=== PATIENT | female | born 1990 | race Caucasian/White ===

== ENCOUNTER 2016-08-31 22:12 | Emergency (ER) | payer OTHER ==
[~2016-08-31] VITALS: Ht 170.2 cm; Wt 68.0 kg
[~2016-08-31 22:12] MED LIST: AMBIEN 5 MG TABL5 M1; CELEBREX 200 M200 MG PO; CENTRUM GARLIC300 MG PO; CLEOCIN HCL150 MG; CRANBERRY400 MG PO; DEPAKOTE 250MG250 M1 PO; HYDROCODON-ACE1 EAC7 PO; NORCO 5-325 TA1 EACH PO; PAXIL10 MG; PAXIL10 MG PO; PEPCID20 MG PO; PHENERGAN 25 MG25 M1 PO; XANAX 0.25 MG0.25 MG
[2016-08-31] MEDS ORDERED: ATENOLOL 25 MG25 M1 PO (22:16)
[2016-08-31] MEDS ORDERED: VALIUM5 MG PO (22:17)
[2016-08-31 22:27] LABS: URINE BILIRUBIN NEGATIVE (Negative); URINE BLOOD TRACE (Negative); URINE COLOR YELLOW; URINE GLUCOSE-RANDOM* NEGATIVE (Negative); URINE KETONES NEGATIVE (Negative); URINE NITRITE NEGATIVE (Negative); URINE PROTEIN (DIPSTICK) NEGATIVE (Negative); URINE UROBILINOGEN 0.2 E.U./dl (0.2-1.0)
[2016-08-31 22:39] LABS: HEMOGLOBIN 14.1 gm/dL (12.0-15.0); MCH 30.2 pg (26.0-34.0); MCHC 34.3 % (28.0-37.0); MCV 87.9 fL (80.0-100.0); PLATELET COUNT 105 thou/uL (150-400); RBC 4.67 mil/uL (4.20-5.00); RDW 13.1 % (10.5-14.5); WBC 5.4 thou/uL (4.0-11.0)
[2016-08-31 22:41] LABS: MANUAL DIFF YES
[2016-08-31 22:46] LABS: CALCIUM 8.7 mg/dL (8.5-10.1); POTASSIUM 3.7 mmol/L (3.5-5.1)
[2016-08-31 22:52] LABS: ALBUMIN 3.8 g/dL (3.4-5.0); TOTAL BILIRUBIN 0.5 mg/dL (<0.1-1.0); TOTAL PROTEIN 7.5 g/dL (6.4-8.2)
[2016-08-31 22:58] LABS: ABSOLUTE NEUTROPHILS 2.2 thou/uL (1.4-8.2); ANISOCYTOSIS 1+; TOTAL CELL COUNT 100
[2016-08-31 23:00] LABS: CASTS None Seen /LPF (None Seen); CRYSTALS None Seen /LPF (None Seen); SQUAMOUS 4-10 Moderate /LPF (0-3); URINE RBC 0-2 Rare /HPF (0-2); URINE WBC 0-5 Rare /HPF (0-5)
[2016-09-01] MEDS ORDERED: NORCO 5-325 TA1 EACH PO (00:10)
[2016-09-01] MEDS ORDERED: PHENERGAN 25 MG25 M1 PO (00:11)
[2016-09-01 00:31] VITALS: BP 106/61
[2016-09-15] MEDS ORDERED: BUSPIRONE HCL5 MG PO (23:48)
[2016-09-15] MEDS ORDERED: OXYCODONE-ACET1 EACH PO (23:49)
[2016-09-15] MEDS ORDERED: PHENERGAN 25 MG25 M1 PO (23:49)
[2016-09-15] MEDS ORDERED: VENLAFAXINE HC150 M1 PO (23:49)
[2016-09-15] MEDS ORDERED: QUETIAPINE FUM300 MG PO (23:49)
== END 2016-09-01 00:37 | disposition home or self-care (01) ==
LOC: ER 22:12
PROVIDERS: Physician Assistant
DX: K82.0 Obstruction of gallbladder (principal); G43.909 Migraine, unspecified, not intractable, without status migrainosus; F17.210 Nicotine dependence, cigarettes, uncomplicated; Z88.0 Allergy status to penicillin; Z88.5 Allergy status to narcotic agent; Z88.6 Allergy status to analgesic agent

== ENCOUNTER 2016-09-04 19:33 | Emergency (ER) | payer OTHER ==
[~2016-09-04] VITALS: Ht 180.3 cm; Wt 90.7 kg
[~2016-09-04 19:33] MED LIST changes: +ATENOLOL 25 MG25 M1 PO; +VALIUM5 MG PO
[2016-09-04 20:15] LABS: HEMATOCRIT 40.6 % (37.0-47.0); HEMOGLOBIN 13.9 gm/dL (12.0-15.0); MCH 30.2 pg (26.0-34.0); MCHC 34.1 % (28.0-37.0); MCV 88.5 fL (80.0-100.0); PLATELET COUNT 116 thou/uL (150-400); RBC 4.59 mil/uL (4.20-5.00); RDW 13.1 % (10.5-14.5); WBC 4.1 thou/uL (4.0-11.0)
[2016-09-04 20:15] LABS: URINE BILIRUBIN NEGATIVE (Negative); URINE BLOOD TRACE (Negative); URINE COLOR YELLOW; URINE GLUCOSE-RANDOM* NEGATIVE (Negative); URINE KETONES NEGATIVE (Negative); URINE LEUKOCYTES-REFLEX 1+ (Negative); URINE PROTEIN (DIPSTICK) TRACE (Negative); URINE SPECIFIC GRAVITY >= 1.030 (1.003-1.035)
[2016-09-04 20:17] LABS: MANUAL DIFF YES
[2016-09-04 20:24] LABS: CALCIUM 8.4 mg/dL (8.5-10.1); CREATININE 0.9 mg/dL (0.6-1.3)
[2016-09-04 20:26] LABS: ALBUMIN 3.3 g/dL (3.4-5.0); TOTAL BILIRUBIN 0.3 mg/dL (<0.1-1.0); TOTAL PROTEIN 6.8 g/dL (6.4-8.2)
[2016-09-04 20:28] LABS: CASTS None Seen /LPF (None Seen); SQUAMOUS 4-10 Moderate /LPF (0-3); URINE RBC 3-10 Few /HPF (0-2); URINE WBC-REFLEX 6-15 Few /HPF (0-5)
[2016-09-04 20:29] LABS: CRYSTALS None Seen /LPF (None Seen)
[2016-09-04 20:54] LABS: ABSOLUTE NEUTROPHILS 0.9 thou/uL (1.4-8.2); ATYPICAL LYMPHS 10 %; LARGE PLATELETS FEW; POIKILOCYTOSIS SLIGHT; TOTAL CELL COUNT 100
[2016-09-04] MEDS ORDERED: PERCOCET 5-3251 EACH PO (22:15)
[2016-09-04 22:35] VITALS: BP 119/73
[2016-09-15] MEDS ORDERED: BUSPIRONE HCL5 MG PO (23:48)
[2016-09-15] MEDS ORDERED: VENLAFAXINE HC150 M1 PO (23:49)
[2016-09-15] MEDS ORDERED: PHENERGAN 25 MG25 M1 PO (23:49)
[2016-09-15] MEDS ORDERED: QUETIAPINE FUM300 MG PO (23:49)
[2016-09-15] MEDS ORDERED: OXYCODONE-ACET1 EACH PO (23:49)
== END 2016-09-04 22:36 | disposition home or self-care (01) ==
LOC: ER 19:33
PROVIDERS: Emergency Medicine
DX: N83.201 Unspecified ovarian cyst, right side (principal); N39.0 Urinary tract infection, site not specified; G43.909 Migraine, unspecified, not intractable, without status migrainosus; F17.210 Nicotine dependence, cigarettes, uncomplicated; Z90.710 Acquired absence of both cervix and uterus; Z88.0 Allergy status to penicillin; Z88.6 Allergy status to analgesic agent; Z88.5 Allergy status to narcotic agent

== ENCOUNTER 2016-12-06 22:25 | Emergency (ER) | payer OTHER ==
[~2016-12-06] VITALS: Ht 180.3 cm; Wt 90.7 kg
[~2016-12-06 22:25] MED LIST changes: +BUSPIRONE HCL5 MG PO; +OXYCODONE-ACET1 EACH PO; +PERCOCET 5-3251 EACH PO; +QUETIAPINE FUM300 MG PO; +VENLAFAXINE HC150 M1 PO
[2016-12-06 23:18] LABS: URINE BILIRUBIN NEGATIVE (Negative); URINE BLOOD 1+ (Negative); URINE COLOR YELLOW; URINE GLUCOSE-RANDOM* NEGATIVE (Negative); URINE KETONES NEGATIVE (Negative); URINE NITRITE NEGATIVE (Negative); URINE PROTEIN (DIPSTICK) NEGATIVE (Negative); URINE SPECIFIC GRAVITY 1.025 (1.003-1.035); URINE UROBILINOGEN 0.2 E.U./dl (0.2-1.0)
[2016-12-06 23:29] LABS: CASTS None Seen /LPF (None Seen); URINE WBC 0-5 Rare /HPF (0-5)
[2016-12-06 23:30] LABS: BACTERIA 1-9 Few /HPF (None Seen); CRYSTALS None Seen /LPF (None Seen); SQUAMOUS 0-3 Few /LPF (0-3); URINE RBC 0-2 Rare /HPF (0-2)
[2016-12-06 23:57] LABS: ABSOLUTE NEUTROPHILS 1.7 thou/uL (1.4-8.2); BASOPHILS 0.5 % (0.0-2.0); EOSINOPHILS 1.2 % (0.0-3.0); HEMATOCRIT 38.4 % (37.0-47.0); HEMOGLOBIN 13.5 gm/dL (12.0-15.0); LYMPHOCYTES 48.9 % (24.0-44.0); MCH 30.3 pg (26.0-34.0); MCHC 35.2 g/dL (28.0-37.0); MCV 86.2 fL (80.0-100.0); MONOCYTES 8.7 % (1.0-8.0); PLATELET COUNT 146 thou/uL (150-400); POLYS 40.7 % (36.0-66.0); RBC 4.45 mil/uL (4.20-5.00); WBC 4.3 thou/uL (4.0-11.0)
[2016-12-07 00:07] LABS: MANUAL DIFF NO
[2016-12-07 00:08] LABS: ANION GAP 8 mmol/L (7-16); BUN 18 mg/dL (7-18); CALCIUM 9.6 mg/dL (8.5-10.1); CHLORIDE 102 mmol/L (98-107); CO2 30 mmol/L (21-32); GLUCOSE 88 mg/dL (74-106); POTASSIUM 4.2 mmol/L (3.5-5.1); SODIUM 140 mmol/L (136-145)
[2016-12-07] MEDS ORDERED: MACROBID 100 M100 M1 PO (00:09)
[2016-12-07 00:12] LABS: ALBUMIN 3.4 g/dL (3.4-5.0); ALKALINE PHOSPHATASE 87 U/L (46-116); DIRECT BILIRUBIN < 0.1 mg/dL (<0.1-0.3); SGOT 14 U/L (15-37); SGPT 27 U/L (30-65); TOTAL BILIRUBIN 0.2 mg/dL (<0.1-1.0); TOTAL PROTEIN 7.1 g/dL (6.4-8.2)
[2016-12-07] MEDS ORDERED: COLACE100 MG PO (00:12)
[2016-12-07 00:18] VITALS: BP 111/78
== END 2016-12-07 00:26 | disposition home or self-care (01) ==
LOC: ER 22:25
PROVIDERS: Nurse Practitioner
DX: K59.00 Constipation, unspecified (principal); N39.0 Urinary tract infection, site not specified; Z90.710 Acquired absence of both cervix and uterus; Z88.5 Allergy status to narcotic agent; Z88.6 Allergy status to analgesic agent; Z88.0 Allergy status to penicillin; Z88.8 Allergy status to other drugs, medicaments and biological substances; F17.210 Nicotine dependence, cigarettes, uncomplicated